=== PATIENT | male | born 1960 | race Caucasian/White ===

== ENCOUNTER 2022-05-07 14:01 | Inpatient (IN) | payer OTHER ==
[~2022-05-07] VITALS: Ht 134.6 cm; Wt 41.7 kg
--- NOTE | 2022-05-07 14:01 | NUR ---
[facility] TO ER BED 2
--- NOTE | 2022-05-07 14:15 | NUR ---
PT BROUGHT IN BY EMS DUE TO RESPIRATORY DISTRESS. ORDER FOR VENT. SETTING ACVC TV400, F18, +5, 100%FIO2. VENT PLUGGED INTO RED OUTLET,WHEELS LOCKED, AMBUBAG AT BEDSIDE, ALARMS ARE SET AND AUDIBLE. BREATH SOUNDS ARE COARSE, SUCTIONED THICK YELLOW SECRETIONS AND PT SPITS REGULARLY.
[2022-05-07 14:23] VITALS: BP 120/76
[2022-05-07] MEDS ORDERED: PIPERACILLIN/TAZOBACTAM 3.375 GM in DEXT 5% MINI-BAG PLUS 50 ML IV ONE (14:25)
[2022-05-07] MEDS ORDERED: NACL 0.9% 1,000 ML IV ONE (14:25)
[2022-05-07] MEDS ORDERED: cefTRIAXone 2,000 MG in DEXTROSE 5% 100 ML IV ONE (14:50)
[2022-05-07] MEDS ORDERED: cefTRIAXone 2,000 MG VIAL ONE (15:04)
[2022-05-07 15:18] LABS: BASOPHILS % (AUTO) 0.2 % (0.0-2.0); EOSINOPHILS # (AUTO) 0.2 K/uL (0-0.4); EOSINOPHILS % (AUTO) 1.2 % (0.0-4.0); HEMATOCRIT 26.9 % (36-52); HEMOGLOBIN 8.7 g/dL (12.0-18.0); LYMPHOCYTES # (AUTO) 0.4 K/uL (2.0-11.5); LYMPHOCYTES % (AUTO) 3.5 % (20.5-51.1); MEAN CORPUSCULAR HEMOGLOBIN 28 pg (27-31); MEAN CORPUSCULAR HGB CONC 32 g/dL (33-37); MEAN CORPUSCULAR VOLUME 86.4 fL (80-94); MONOCYTES # (AUTO) 0.7 K/uL (0.8-1.0); MONOCYTES % (AUTO) 5.6 % (1.7-9.3); NEUTROPHILS # (AUTO) 11.2 K/uL (1.8-7.7); NEUTROPHILS % (AUTO) 89.5 % (42.2-75.2); PLATELET COUNT (AUTO) 326 K/uL (140-450); RED BLOOD CELL COUNT(AUTO) 3.12 MIL/uL (4.20-6.10); RED CELL DISTRIBUTION WIDTH 15.3 % (11.6-13.7); WHITE BLOOD COUNT (AUTO) 12.6 K/uL (4.8-10.8)
[2022-05-07 15:32] LABS: ANION GAP 14.4 (8-16); CARBON DIOXIDE 31.3 mmol/L (21-32); CREATININE 1.2 mg/dL (0.6-1.3); POTASSIUM 5.7 mmol/L (3.5-5.1); TOTAL BILIRUBIN 0.4 mg/dL (0.0-1.0)
[2022-05-07 15:55] VITALS: BP 101/34
[2022-05-07 17:21] LABS: APPEARANCE,URINE CLOUDY (CLEAR)
[2022-05-07 17:22] LABS: COLOR,URINE YELLOW (YELLOW)
[2022-05-07 17:23] LABS: PH,URINE 7.5 (5.0-9.0)
[2022-05-07 17:25] LABS: BLOOD, URINE 2+ (NEGATIVE); UGLUCOSE NEGATIVE (NEGATIVE)
[2022-05-07 17:26] LABS: BILIRUBIN,URINE NEGATIVE (NEGATIVE)
[2022-05-07 17:27] LABS: LEUKOCYTE ESTERASE ,URINE 3+ (NEGATIVE); NITRITE, URINE NEGATIVE (NEGATIVE)
[2022-05-07] MEDS ORDERED: guaiFENesin DM 200/20 MG-10 ML 10 ML UDC PO PRN (17:35)
[2022-05-07] MEDS ORDERED: DOCUSATE SODIUM 100 MG GELCAP PO PRN (17:35)
[2022-05-07] MEDS: NACL 0.9% 1,000 ML IV SCH (17:35)
[2022-05-07] MEDS ORDERED: ZOLPIDEM 5 MG TAB PO PRN (17:35)
[2022-05-07] MEDS ORDERED: HYDROcodone/APAP 7.5/325 MG 1 TAB PO PRN (17:35)
[2022-05-07] MEDS ORDERED: ONDANSETRON 4 MG/2 ML VIAL IM/IVP PRN (17:35)
[2022-05-07] MEDS ORDERED: POTASSIUM CHLORIDE 10 MEQ TABER PO PRN (17:35)
[2022-05-07] MEDS ORDERED: ALBUTEROL SULFATE/IPRATROPIU 3 ML SOL IH PRN (17:40)
[2022-05-07] MEDS ORDERED: NACL 0.9% 2,000 ML IV ONE (17:45)
[2022-05-07] MEDS: levETIRAcetam 500 MG TAB PO SCH ×2 (17:45→21:03)
[2022-05-07 17:52] LABS: RBC,URINE 50-80 /HPF (0-5); WBC,URINE TOO MANY TO COUNT /HPF (0-5)
[2022-05-07 17:53] LABS: PROTHROMBIN TIME 10.1 secs (10.8-13.4)
[2022-05-07 17:53] LABS: TRICHOMONAS,URINE None Seen /HPF (None Seen); YEAST,URINE None Seen /HPF (None Seen)
[2022-05-07] MEDS ORDERED: LEVOFLOXACIN 500 MG/D5W PREMIX 150 ML IV SCH (17:58)
[2022-05-07 18:05] LABS: CHOL/HDL RATIO 1.9 (1-4.5); FREE T4 (FREE THYROXINE) 0.97 ng/dL (0.76-1.46); MAGNESIUM 2.2 mg/dL (1.8-2.4); PHOSPHORUS 3.2 mg/dL (2.5-4.9); THYROID STIMULATING HORMONE 0.53 uIU/mL (0.34-3.74)
[2022-05-07] MEDS: ALBUTEROL SULFATE/IPRATROPIU 3 ML SOL IH SCH (19:00)
--- NOTE | 2022-05-07 19:30 | NUR ---
Patient in bed, resting comfortably with NS infusing at 60 mL/hr via 20 G IV in left AC. Patient on mechanical vent via trach, chest rise and fall symmetrical, patient on monitor, VSS.
--- NOTE | 2022-05-07 19:45 | NUR ---
Note margarettewillem in EDM - 05/07/22 at 2211 by [id number] Patient will be admitted to care of Liane ROBLES. Admited to Telemetry. Will go to room 108B. Belongings list completed. Bedside report given to Liane ROBLES. Liane ROBLES verbalized understanding of report, no further questions. Patient left in care of Liane ROBLES, patient on mechanical vent, resting in bed, no s/s of distress, 20 G IV in left AC intact, IV flushed and patent.
[2022-05-07 20:23] VITALS: BP 73/37
[2022-05-07] MEDS ORDERED: CRUSHER, PILL MC ONE (21:06)
[2022-05-07 21:35] VITALS: BP 101/50
--- NOTE | 2022-05-07 21:44 | NUR ---
PT TRANSPORTED FROM ED1 TO TELE 108 W/ NO ADVERSE EVENTS PT TOLERATED TRANSPORT WELL VENT PLUGGED INTO RED OUTLET W/ ALARMS ON AND AUDIBLE AMBU WAS PLACED AT BEDSIDE WILL CONTINUE TO MONITOR
--- NOTE | 2022-05-07 21:45 | NUR ---
Patient will be admitted to care of Liane ROBLES. Admited to Telemetry. Will go to room 108B. Belongings list completed. Bedside report given to Liane ROBLES. Liane ROBLES verbalized understanding of report, no further questions. Patient left in care of Liane ROBLES, patient on mechanical vent, resting in bed, no s/s of distress, 20 G IV in left AC intact, IV flushed and patent.
--- NOTE | 2022-05-07 22:23 | NUR ---
GET THE REPORT FROM ER NURSE , PATIENT IS APHASIC, PATIENT IS ON TRACH TO KOLE WITH SETTING ON MODE:AC/AV, FIO2: 40%,RATE:18,PEEP:5, VITAL SIGN IS WITHIN THE NORMAL RANGE, PATIENT HAS G-TUBE, PATIENT HAS ALSO KAT CATHETER,ALL FALL AN SEIZURE PRECAUTION MEASURE ARE IN PLACE, ALL SCHEDULE MEDICATION IS GIVEN PER DOCTOR ORDER, CALL LIGHT IS WITHIN THE REACH, WILL CONTINUE TO MONITOR PATIENT.
[2022-05-07] MEDS ORDERED: MAGN400S60 GT (23:07)
[2022-05-07] MEDS ORDERED: PANT40EC GT (23:07)
[2022-05-07] MEDS ORDERED: ATIVAN IM (23:07)
[2022-05-07] MEDS ORDERED: ALBU0.0912 INH (23:07)
[2022-05-07] MEDS ORDERED: ASCO500T95 GT (23:07)
[2022-05-07] MEDS ORDERED: BISA-218 RC (23:07)
[2022-05-07] MEDS ORDERED: LEVE750T3 GT (23:07)
[2022-05-07] MEDS ORDERED: FERR325E14 GT (23:07)
[2022-05-07] MEDS ORDERED: ONDA-188 GT (23:07)
[2022-05-07] MEDS ORDERED: LACT10SO86 GT (23:07)
[2022-05-07] MEDS ORDERED: NA P133E RC (23:07)
[2022-05-07] MEDS ORDERED: CALC1TAB72 GT (23:07)
[2022-05-07] MEDS ORDERED: ACET-2619 GT (23:07)
[2022-05-07] MEDS ORDERED: MEDI30SO GT (23:07)
[2022-05-07] MEDS ORDERED: ROB1 GT (23:07)
[2022-05-07] MEDS ORDERED: LACO10SO12 GT (23:07)
[2022-05-08] VITALS (8 sets, daily range): BP systolic 95–177; BP diastolic 50–102
--- NOTE | 2022-05-08 00:45 | NUR ---
PATIENT IS LYING IN BED, VITAL SIGN IS WITHIN THE NORMAL RANGE, NO ANY COMPLAIN OF PAIN OR SHORTNESS OF BREATH AT THIS TIME, CHALKED PATIENT BLOOD SUGAR IS 104, NO ACTION NEEDED AT THIS TIME, CALL LIGHT IS WITHIN THE REACH, WILL CONTINUE TO MONITOR PATIENT.
[2022-05-08 03:05] LABS: BARBITURATE, URINE NEGATIVE ng/ml (NEG <=200); BENZODIAZEPINE, URINE NEGATIVE ng/mL (NEG <=200); CANNABINOID, URINE NEGATIVE ng/mL (NEG <=50); COCAINE, URINE NEGATIVE ng/mL (NEG <=300); OPIATE, URINE NEGATIVE ng/mL (NEG <=2000); PHENCYCLIDINE SCREEN,URINE NEGATIVE ng/mL (NEG <=25)
--- NOTE | 2022-05-08 04:19 | NUR ---
VITAL SIGN IS WITHIN THE NORMAL RANGE, PATIENT IS LYING ON BED, REPOSITION PATIENT AND CLEANED WITH HELP OF CHARGE NURSE, NO ANY COMPLAIN OF PAIN OR SHORTNESS OF BREATH AT THIS TIME, CALL LIGHT IS WITHIN THE REACH, WILL CONTINUE TO MONITOR PATIENT.
[2022-05-08 07:00] LABS: ANION GAP 11.9 (8-16); POTASSIUM 3.9 mmol/L (3.5-5.1)
--- NOTE | 2022-05-08 07:21 | NUR ---
GAVE THE REPORT TO MORNING NURSE MARY FOR CONTINUOS OF CARE, PATIENT IS STABLE.
[2022-05-08 07:41] LABS: EOSINOPHILS # (AUTO) 0.1 K/uL (0-0.4); EOSINOPHILS % (AUTO) 0.6 % (0.0-4.0); MONOCYTES # (AUTO) 0.7 K/uL (0.8-1.0); PLATELET COUNT (AUTO) 221 K/uL (140-450)
[2022-05-08 07:46] LABS: BASOPHILS % (AUTO) 0.2 % (0.0-2.0); HEMATOCRIT 21.4 % (36-52); LYMPHOCYTES # (AUTO) 0.5 K/uL (2.0-11.5); LYMPHOCYTES % (AUTO) 3.6 % (20.5-51.1); MEAN CORPUSCULAR HEMOGLOBIN 28 pg (27-31); MEAN CORPUSCULAR HGB CONC 32 g/dL (33-37); MEAN CORPUSCULAR VOLUME 87.1 fL (80-94); NEUTROPHILS # (AUTO) 12.7 K/uL (1.8-7.7); NEUTROPHILS % (AUTO) 90.6 % (42.2-75.2); RED BLOOD CELL COUNT(AUTO) 2.46 MIL/uL (4.20-6.10); RED CELL DISTRIBUTION WIDTH 15.6 % (11.6-13.7)
[2022-05-08 07:49] LABS: HEMOGLOBIN 6.9 g/dL (12.0-18.0)
[2022-05-08] MEDS: ALBUTEROL SULFATE/IPRATROPIU 3 ML SOL IH SCH ×3 (07:49→20:40)
--- NOTE | 2022-05-08 08:41 | NUR ---
RECEIVE ENDORSEMENT FROM PM SHIFT NURSE THAT PATIENT RE IN BED; PATIENT IS APHAGIA WITH TRACH TO VENT, TUBE FEEDING GLUCERNA 1.2 @40ML/HR, WATER FLUSH 100; PIV NS@60ML/HR INFUSING AT LAC. WILL CONTINUE TO MONITOR
--- NOTE | 2022-05-08 09:30 | NUR ---
PATIENT HAS BEEN SCREENED AND CATEGORIZED HIGH NUTRITION RISK. PATIENT WILL BE SEEN WITHIN 1-2 DAYS OF ADMISSION. 05/08/22-05/10/[address]
[2022-05-08] MEDS: LEVOFLOXACIN 250 MG/D5 PREMIX 50 ML IV SCH (09:55)
[2022-05-08] MEDS: PANTOPRAZOLE 40 MG TABEC PO SCH (09:58)
[2022-05-08] MEDS: levETIRAcetam 500 MG TAB PO SCH ×2 (09:58→21:16)
[2022-05-08] MEDS: NACL 0.9% 1,000 ML IV SCH (09:59)
[2022-05-08 11:28] LABS: BASOPHILS % (AUTO) 0.3 % (0.0-2.0); EOSINOPHILS % (AUTO) 0.2 % (0.0-4.0); HEMATOCRIT 21.8 % (36-52); LYMPHOCYTES # (AUTO) 0.7 K/uL (2.0-11.5); MEAN CORPUSCULAR HEMOGLOBIN 28 pg (27-31); MEAN CORPUSCULAR HGB CONC 32 g/dL (33-37); MEAN CORPUSCULAR VOLUME 88.3 fL (80-94); MONOCYTES # (AUTO) 0.8 K/uL (0.8-1.0); NEUTROPHILS % (AUTO) 90.5 % (42.2-75.2); PLATELET COUNT (AUTO) 281 K/uL (140-450); RED BLOOD CELL COUNT(AUTO) 2.46 MIL/uL (4.20-6.10); RED CELL DISTRIBUTION WIDTH 15.8 % (11.6-13.7); WHITE BLOOD COUNT (AUTO) 16.5 K/uL (4.8-10.8)
[2022-05-08 11:31] LABS: HEMOGLOBIN 6.9 g/dL (12.0-18.0)
--- NOTE | 2022-05-08 19:30 | NUR ---
RECEIVED REPORT FROM DAY SHIFT NURSE FOR CONTINUITY OF CARE. PT IS AWAKE, ALERT AND RESPONSIVE ON BED, NOTED SHAKY. SALINE LOCK ON LEFT AC INTACT AND PATENT. SALINE LOCK ON RIGHT FOREARM INTACT. PT IS WITH KAT CATHETER, INTACT AND PATENT. PT IS WITH GTUBE FEEDING GLUCERNA 1.2 AT 40 ML/HR WITH WELL TOLERATED. SKIN INTACT. CONTINUE MONITORING.
[2022-05-08] MEDS: LORazepam 2 MG/ML VIAL IVP PRN (19:34)
[2022-05-08] MEDS ORDERED: diphenhydrAMINE 50 MG/ML VIAL IVP SCH (19:40)
[2022-05-08] MEDS: METOPROLOL 25 MG TAB PO SCH (21:18)
[2022-05-08 23:49] LABS: HEMATOCRIT 20.7 % (36-52)
[2022-05-09] VITALS (8 sets, daily range): BP systolic 112–139; BP diastolic 46–69
--- NOTE | 2022-05-09 00:24 | NUR ---
REPORTED TO DR. RIGGINS HGB RESULT = 7.0. DR. RIGGINS ORDER TO TRANSFUSE 1 MORE UNIT OF PRBCs. ORDER CARRIED OUT.
--- NOTE | 2022-05-09 02:27 | NUR ---
VITAL SIGNS CHECK PRIOR BLOOD TRANSFUSION. PT AWAKE AND ALERT. NO SOB OR DISTRESS. V/S: B/P108/45, P87, T98.5, R20, PAIN 0/10, O2 SAT 97%.
--- NOTE | 2022-05-09 02:42 | NUR ---
STARTS BLOOD TRANSFUSION OF 1 PACK RBC. PT IS SLEEPING. NO SOB OR DISTRESS. IV SALINE LOCK ON LEFT AC INTACT AND PATENT. B/P115/55, P82, R20, T98.7, O/10 PAIN.
[2022-05-09] MEDS: NACL 0.9% 1,000 ML IV SCH ×2 (02:55→19:35)
--- NOTE | 2022-05-09 02:57 | NUR ---
PT IS SLEEPING, WELL TOLERATED WITH BLOOD TRANSFUSION. NO ALLERGY OR SIDE REACTION. NO FACIAL GRIMACING.
--- NOTE | 2022-05-09 03:57 | NUR ---
BLOOD TRANSFUSION IS ON GOING. WELL TOLERATED. NO ALLERGY OR SIDE REACTION. B/P128/55, P80, R20, T98.3, PAIN 0/10. WELL TOLERATED, NO ALLERGY OR SIDE REACTION.
--- NOTE | 2022-05-09 04:57 | NUR ---
BLOOD TRANSFUSION ON GOING, NO ALLERGY OR SIDE REACTION.
--- NOTE | 2022-05-09 05:15 | NUR ---
BLOOD TRANSFUSION COMPLETED. WELL TOLERATED, NO ALLERGY OR SIDE REACTION.
--- NOTE | 2022-05-09 05:57 | NUR ---
V/S CHECKED: B/P123/65, P74, R21, T97.8, PAIN 0/10. PT AWAKE AND RESPONSIVE.
--- NOTE | 2022-05-09 07:10 | NUR ---
PT IS AWAKE, ALERT AND RESPONSIVE, IS ON STABLE CONDITION. ENDORSE TO DAY SHIFT NURSE FOR CONTINUITY OF CARE. ALL SAFETY MEASURES ARE IN PLACE.
[2022-05-09] MEDS: ALBUTEROL SULFATE/IPRATROPIU 3 ML SOL IH SCH ×3 (08:24→19:19)
[2022-05-09 08:27] LABS: BASOPHILS % (AUTO) 0.3 % (0.0-2.0); EOSINOPHILS # (AUTO) 0.1 K/uL (0-0.4); EOSINOPHILS % (AUTO) 1.4 % (0.0-4.0); HEMATOCRIT 27.9 % (36-52); HEMOGLOBIN 9.2 g/dL (12.0-18.0); LYMPHOCYTES # (AUTO) 0.5 K/uL (2.0-11.5); LYMPHOCYTES % (AUTO) 4.4 % (20.5-51.1); MEAN CORPUSCULAR HEMOGLOBIN 28 pg (27-31); MEAN CORPUSCULAR HGB CONC 33 g/dL (33-37); MEAN CORPUSCULAR VOLUME 85.3 fL (80-94); MONOCYTES # (AUTO) 0.6 K/uL (0.8-1.0); MONOCYTES % (AUTO) 5.5 % (1.7-9.3); NEUTROPHILS # (AUTO) 9.2 K/uL (1.8-7.7); NEUTROPHILS % (AUTO) 88.4 % (42.2-75.2); PLATELET COUNT (AUTO) 202 K/uL (140-450); RED BLOOD CELL COUNT(AUTO) 3.27 MIL/uL (4.20-6.10); RED CELL DISTRIBUTION WIDTH 16.1 % (11.6-13.7); WHITE BLOOD COUNT (AUTO) 10.4 K/uL (4.8-10.8)
[2022-05-09 08:42] LABS: ANION GAP 14.4 (8-16); CARBON DIOXIDE 23.5 mmol/L (21-32); CREATININE 0.8 mg/dL (0.6-1.3); POTASSIUM 3.9 mmol/L (3.5-5.1)
--- NOTE | 2022-05-09 08:44 | NUR ---
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 WILL CONTINUE TO MONITOR
[2022-05-09 09:06] LABS: T4 (THYROXINE) 7.4 ug/dL (4.5-12.0)
[2022-05-09] MEDS: LEVOFLOXACIN 250 MG/D5 PREMIX 50 ML IV SCH (09:54)
[2022-05-09] MEDS: PANTOPRAZOLE 40 MG TABEC PO SCH (09:55)
[2022-05-09] MEDS: MUPIROCIN CA NASAL 2% 1GM TUBE NS SCH (09:55)
[2022-05-09] MEDS: METOPROLOL 25 MG TAB PO SCH ×2 (09:57→20:49)
[2022-05-09] MEDS: levETIRAcetam 500 MG TAB PO SCH (09:58)
[2022-05-09] MEDS: CHLORHEXADINE GLUC 2% CLOTH TP SCH (09:58)
--- NOTE | 2022-05-09 15:48 | NUR ---
05/09/2022 RD INITIAL ASSESSMENT COMPLETED. PLEASE REFER TO NUTRITION ASSESSMENT UNDER CARE ACTIVITY FOR ESTIMATED NUTRITIONAL NEEDS. 1.CONTINUE GLUCERNA 1.2 @ 40ML/HR; FWF 100ML Q4H PT TOLERATES. 2.MONITOR GASTRIC RESIDUAL 3.RD TO FOLLOW-UP IN 3-5 DAYS PATIENT IS MODERATE RISK. RASHID URIBE RD
--- NOTE | 2022-05-09 19:30 | NUR ---
REPORT RECEIVED FROM DAY SHIFT RN. PATIENT AWAKE, NON VERBAL. PT IS CONTRACTED. VITAL SIGNS TAKEN AND STABLE. PT TRACHED ON VENTILATOR, WITH A KAT DRAINING CLEAR YELLOW URINE. IV TO LEFT AC AND IV TO RIGHT FOREARM. CARE TAKEN OVER. WILL CONTINUE TO MONITOR.
--- NOTE | 2022-05-09 19:44 | NUR ---
ENDORSE PATIENT TO PM SHIFT NURSE WHILE PATIENT REST IN BED, APHAGIA, ON TRACH TO VENT, TUBE FEEDING GLUCERNA 1.2 @40ML/HR, WATER FLUSH 100ML Q 4 HOURS; PIV NS@60ML/HR INFUSING VIA LAC, R.FOREARM SALINE LOOK; CONTACT ISOLATION FOR MRSA POSITIVE AT NARES
[2022-05-09] MEDS: VALPROIC ACID 250 MG/5 ML UDC PO SCH (20:48)
[2022-05-09] MEDS: levETIRAcetam 100 MG/ML ORASYR PEG SCH (20:48)
--- NOTE | 2022-05-09 20:48 | NUR ---
SCHEDULED MEDICATIONS ADMINISTERED ORDERED.
--- NOTE | 2022-05-09 23:00 | NUR ---
PT RESTING WITH EYES OPEN. NO S/S OF ANY DISTRESS. WILL CONTINUE TO MONITOR
[2022-05-10] VITALS (7 sets, daily range): BP systolic 115–146; BP diastolic 52–65
--- NOTE | 2022-05-10 03:01 | NUR ---
PATIENT SLEEPING. HAD SOFT BOWEL MOVEMENT. CLEANED LUX AREA AND CHANGED LINEN. NO S/S OF DISTRESS. WILL CONTINUE TO MONITOR.
[2022-05-10] MEDS ORDERED: DEXTROSE 50% 50 ML SYR IVP PRN (03:30)
[2022-05-10] MEDS ORDERED: INSULIN LISPRO SLIDING SCALE 100 UNITS/ML VIAL SUBQ PRN (03:30)
--- NOTE | 2022-05-10 04:00 | NUR ---
PT AWAKE IN BED, NON VERBAL. VITALS TAKEN, STABLE. WILL CONTINUE TO MONITOR.
--- NOTE | 2022-05-10 04:20 | NUR ---
SUCTIONED SECRETIONS TOLERATED WELL. NO DISTRESS.
[2022-05-10] MEDS: BLOOD GLUCOSE MONITORING 1 DEV DEV FS SCH ×4 (06:32→20:55)
--- NOTE | 2022-05-10 06:32 | NUR ---
BLOOD SUGAR CHECKED WAS 104 NO INSULIN NEEDED.
[2022-05-10 06:39] LABS: ANION GAP 19.7 (8-16); CARBON DIOXIDE 20.9 mmol/L (21-32); POTASSIUM 3.6 mmol/L (3.5-5.1)
[2022-05-10 06:49] LABS: BASOPHILS # (AUTO) 0.1 K/uL (0.00-0.22); BASOPHILS % (AUTO) 0.6 % (0.0-2.0); EOSINOPHILS # (AUTO) 0.6 K/uL (0-0.4); EOSINOPHILS % (AUTO) 3.2 % (0.0-4.0); HEMOGLOBIN 10.5 g/dL (12.0-18.0); LYMPHOCYTES % (AUTO) 11.2 % (20.5-51.1); MEAN CORPUSCULAR HEMOGLOBIN 28 pg (27-31); MEAN CORPUSCULAR HGB CONC 32 g/dL (33-37); MEAN CORPUSCULAR VOLUME 86.6 fL (80-94); MONOCYTES % (AUTO) 5.5 % (1.7-9.3); NEUTROPHILS # (AUTO) 14.2 K/uL (1.8-7.7); NEUTROPHILS % (AUTO) 79.5 % (42.2-75.2); PLATELET COUNT (AUTO) 325 K/uL (140-450); RED BLOOD CELL COUNT(AUTO) 3.81 MIL/uL (4.20-6.10); RED CELL DISTRIBUTION WIDTH 15.9 % (11.6-13.7); WHITE BLOOD COUNT (AUTO) 17.9 K/uL (4.8-10.8)
--- NOTE | 2022-05-10 07:13 | NUR ---
REPORT GIVEN TO DAY SHIFT RN MARILYNN. CARE GIVEN OVER.
[2022-05-10] MEDS: ALBUTEROL SULFATE/IPRATROPIU 3 ML SOL IH SCH ×3 (07:40→20:22)
[2022-05-10] MEDS: PANTOPRAZOLE 40 MG TABEC PO SCH (08:52)
[2022-05-10] MEDS: METOPROLOL 25 MG TAB PO SCH ×2 (08:55→20:45)
[2022-05-10] MEDS: levETIRAcetam 100 MG/ML ORASYR PEG SCH ×2 (08:55→20:45)
[2022-05-10] MEDS: LEVOFLOXACIN 250 MG/D5 PREMIX 50 ML IV SCH (08:56)
[2022-05-10] MEDS: VALPROIC ACID 250 MG/5 ML UDC PO SCH ×2 (08:56→20:45)
[2022-05-10] MEDS: CHLORHEXADINE GLUC 2% CLOTH TP SCH (09:15)
[2022-05-10] MEDS: MUPIROCIN CA NASAL 2% 1GM TUBE NS SCH (09:24)
--- NOTE | 2022-05-10 13:56 | NUR ---
DC PLANNING PATIENT TRAYC/VENT AND IS MINIMALLY VERBAL, THEREFORE SW OUTREACHED TO [facility] TO GATHER COLLATERAL INFORMATION. SPOKE WITH FACILITY TORIN SUAZO WHO REPORTS PATIENT HAS BEEN IN LONG TERM CARE SINCE 10/29/20. PATIENT HAS A SISTER, RAMANA HERMOSILLO [phone] WHO IS ACTIVE IN HIS CARE AND VISITS WITH HIM FREQUENTLY.PATIENT IS REPORTED TO BE CONSERVED, PUBLIC GUARDIAN IS ALY BARBOZABHCOIGUTCTL-[phone] AND IS ALSO [facility] CONNECT[facility]. [facility] [phone]. PATIENT IS TOTAL CARE/ FULL ASSIST AT THE FACILITY AND UTILIZES A WC. SW REPORTS PATIENT IS MINIMALLY VERBAL AND AT BASELINE IS A&Ox1/2. DC PLAN IS FOR PATIENT TO RETURN TO [facility] WHEN MEDICALLY STABLE.
[2022-05-10] MEDS: NACL 0.9% 1,000 ML IV SCH (13:58)
--- NOTE | 2022-05-10 13:58 | NUR ---
PT. WITH LOW KLAUS SCALE AT MODERATE TO HIGH RISK, CONTINUE TO FOLLOW PRESSURE INJURY PREVENTION INTERVENTIONS. -POSITIONING: TURN AND REPOSITION PATIENT Q 2H OR SOONER USE PILLOWS TO KEEP BONY PROMINENCES FROM DIRECT CONTACT WITH SURFACES USE REPOSITIONING WEDGES TO PROVIDE 30-DEGREE ANGLE FOR SIDE LYING POSITIONS OFFLOADING OR FOAM DRESSING TO ALL TUBING TO PREVENT MEDICAL DEVICES RELATED PRESSURE INJURY -RE-EVALUATING AND MANAGING INCONTINENCE MONITOR SKIN CONDITION DURING POSITION CHANGE DO NOT MASSAGE REDNESS, BONY PROMINENCES FREQUENT LUX-CARE AND PROVIDE BARRIER CREAMS PRN IF SOILING MOISTURE CONTROL BY OFFER BED FRANKS/URINAL /ABSORBENT PAD TO WICK AND HOLD MOISTURE KEEP SKIN DRY AND PROTECT FROM FRICTION -MANAGE FRICTION/SHEAR/MOBILITY KEEP HOB AT THE LOWEST LEVEL OF ELEVATION NO MORE THAN 30 DEGREE UNLESS OTHERWISE CONTRAINDICATED USE LIFT SHEET OR TRANSFER DEVICE TO MOVE PATIENT AND PREVENT LATERAL SHEER. PROTECT HEELS, ELBOWS BONY PROMINENCES WITH SKIN BERRIES OR FOAM DRESSING IF EXPOSED TO FRICTION OFFLOAD BILATERAL HEELS BY PLACING PILLOWS UNDER CALVES AT ALL TIMES, UNLESS OTHERWISE CONTRAINDICATED -PRESSURE REDISTRIBUTION SURFACE THERAPY KEN ISOFLEX MATTRESS -NUTRITION: PLEASE FOLLOW RD RECOMMENDATIONS AND OFFER NUTRITION SUPPLEMENTS IF ORDERED. PLEASE CONTACT WOUND CARE NURSE FOR ANY QUESTION AND CHANGE OF WOUND CONDITION.
[2022-05-10] MEDS: ACETAMINOPHEN 325 MG TAB PO PRN (17:05)
--- NOTE | 2022-05-10 19:35 | NUR ---
RECEIVED REPORT FROM MORNING SHIFT. PATIENT SLEEPING WITH TRACH TO VENT. BREATHING EVEN UNLABORED. NO DISTRESS. SKIN WARM AND DRY TO THE TOUCH. IV ACCESS ON THE LAC INFUSING NS AT 60. G-TUBE FEEDING RUNNING 40 MLS/HR TOLERATING WELL. CALL LIGHT WITHIN REACH. WILL CONTINUE TO MONITOR. ALL SAFETY PRECAUTIONS ARE IN PLACE.
--- NOTE | 2022-05-10 20:55 | NUR ---
ALL 2100 SCHEDULED MEDICATIONS ADMINISTERED PER MD ORDER.
--- NOTE | 2022-05-10 20:56 | NUR ---
BLOOD SUGAR CHECKED WAS 139 NO INSULIN COVERAGE NEEDED.
--- NOTE | 2022-05-10 23:50 | NUR ---
PATIENT IS AWAKE. CLEANED , CHANGED AND REPOSITIONED.
[2022-05-11] VITALS: BP 147/72
--- NOTE | 2022-05-11 | NUR ---
ZYVOX ADMINISTERED PER MD ORDER.
[2022-05-11 04:00] VITALS: BP 117/52
[2022-05-11] MEDS: NACL 0.9% 1,000 ML IV SCH ×2 (04:55→21:52)
[2022-05-11] MEDS ORDERED: MEROPENEM 1,000 MG in NACL 0.9% 50 ML IV SCH (05:00)
[2022-05-11 06:42] LABS: ANION GAP 16.1 (8-16); CARBON DIOXIDE 21.2 mmol/L (21-32); CREATININE 0.8 mg/dL (0.6-1.3); POTASSIUM 3.3 mmol/L (3.5-5.1)
[2022-05-11] MEDS: BLOOD GLUCOSE MONITORING 1 DEV DEV FS SCH ×4 (06:42→21:00)
--- NOTE | 2022-05-11 06:42 | NUR ---
BLOOD SUGAR WAS 109 NO INSULIN COVERAGE NEEDED.
[2022-05-11 06:43] LABS: BASOPHILS % (AUTO) 0.2 % (0.0-2.0); EOSINOPHILS # (AUTO) 0.1 K/uL (0-0.4); EOSINOPHILS % (AUTO) 0.6 % (0.0-4.0); HEMATOCRIT 27.1 % (36-52); LYMPHOCYTES # (AUTO) 0.4 K/uL (2.0-11.5); LYMPHOCYTES % (AUTO) 4.3 % (20.5-51.1); MEAN CORPUSCULAR HEMOGLOBIN 28 pg (27-31); MEAN CORPUSCULAR HGB CONC 33 g/dL (33-37); MEAN CORPUSCULAR VOLUME 85.3 fL (80-94); MONOCYTES # (AUTO) 0.6 K/uL (0.8-1.0); MONOCYTES % (AUTO) 6.5 % (1.7-9.3); NEUTROPHILS # (AUTO) 8.8 K/uL (1.8-7.7); NEUTROPHILS % (AUTO) 88.4 % (42.2-75.2); PLATELET COUNT (AUTO) 202 K/uL (140-450); RED BLOOD CELL COUNT(AUTO) 3.18 MIL/uL (4.20-6.10); RED CELL DISTRIBUTION WIDTH 15.9 % (11.6-13.7); WHITE BLOOD COUNT (AUTO) 9.9 K/uL (4.8-10.8)
[2022-05-11] MEDS: ALBUTEROL SULFATE/IPRATROPIU 3 ML SOL IH SCH ×2 (07:01→19:55)
--- NOTE | 2022-05-11 07:15 | NUR ---
[facility]UITY OF CARE. PT IS ON A TRACH TO VENT CURRENTLY SATING AT 95%. PT IS ON TELEMETRY MONITORING. PT HAS A 20G IV ON THE LEFT FOREARM WHICH IS PATENT AND INTACT. PT HAS A G-TUBE WITH FEEDINGS RUNNING 40ML/HR. PT HAS A KAT CATHETER. PT IS STILL ON CONTACT ISOLATION FOR MRSA OF THE NARES. PT HAS ESBL IN THE URINE. PT IS NONVERBAL, BUT CAN POINT TO WHERE PAIN IS PRESENT UPON BEING ASKED. PT IS CLOSEST TO THE NURSES STATION FOR CONTINUOUS OBSERVATION. PT IS IN LOWEST POSITION IN BED, AND SAFETY MEASURES ARE IN PLACE.
--- NOTE | 2022-05-11 07:20 | NUR ---
ENDORSED PATIENT TO DAY SHIFT NURSE FOR CONTINUITY OF CARE.
[2022-05-11 08:00] VITALS: BP 135/52
[2022-05-11] MEDS: levETIRAcetam 100 MG/ML ORASYR PEG SCH ×2 (08:47→21:00)
[2022-05-11] MEDS: VALPROIC ACID 250 MG/5 ML UDC PO SCH ×2 (08:47→21:52)
[2022-05-11] MEDS: METOPROLOL 25 MG TAB PO SCH ×2 (08:48→21:00)
[2022-05-11] MEDS: CHLORHEXADINE GLUC 2% CLOTH TP SCH (09:15)
[2022-05-11] MEDS: MUPIROCIN CA NASAL 2% 1GM TUBE NS SCH (09:15)
--- NOTE | 2022-05-11 09:50 | NUR ---
PT VISIBLY ANXIOUS WITH LABORED BREATHING AND SPITTING SALIVA, SPO2 91%. PERFORMED ORAL CARE AND SUCTION WITH HYPEROXYGENATION. BLOOD TINGED SECRETIONS NOTED. PT FLAILED ARM AND REMOVED VENT, VENT REATTACHED. PAGED RT TO BEDSIDE TO ASSESS. PT SPO2 INCREASED TO 94%.
[2022-05-11] MEDS ORDERED: POTASSIUM CHLORIDE 20% 40 MEQ/15 ML UDC GT PRN (10:45)
[2022-05-11] MEDS: PANTOPRAZOLE 40 MG INJ VIAL IVP SCH (11:00)
[2022-05-11] MEDS: MEROPENEM 1,000 MG in NACL 0.9% 50 ML IV SCH ×2 (11:00→21:52)
--- NOTE | 2022-05-11 11:50 | NUR ---
MILD EDEMA NOTED ON LEFT ARM, IV WAS NOTED OUT OF PT'S ARM, NO BLEEDING AT THE SITE. NEW IV 22G INSERTED RIGHT ANTECUBITAL. FLACC 0.
[2022-05-11 12:00] VITALS: BP 113/51
--- NOTE | 2022-05-11 12:04 | NUR ---
PT SPO2 WAS AT 84%, SUCTIONED PT AND PERFORMED ORAL CARE. PT THEN BEGAN HAVING TONIC CLONIC MOVEMENTS, SEIZURE PROTOCOL INITIATED. SEIZURE DURATION LASTED 45 SECONDS. PT WENT INTO POSTICTAL PHASE, AWAKE WITH NO TRACKING IN EYES. PT HAD MILD SECRETIONS FROM MOUTH AND TRACHE. PT WAS HYPEROXYGENATED AND SUCTIONED, AND PRN ATIVAN GIVEN. PT PROMPTLY FELL ASLEEP. SPO2 STAYED AT 98% POST HYPEROXYGENATION, WITH NO TONIC CLONIC MOVEMENTS NOTED, AFTER 2 MINUTES.
[2022-05-11] MEDS: LORazepam 2 MG/ML VIAL IVP PRN (12:05)
[2022-05-11] MEDS: LINEZOLID 600MG PREMIX 300 ML IV SCH ×2 (13:11)
--- NOTE | 2022-05-11 14:00 | NUR ---
PT CURRENTLY SLEEPING, NO SIGNS OF PAIN OR DISTRESS NOTED.
[2022-05-11 16:00] VITALS: BP 114/56
--- NOTE | 2022-05-11 16:00 | NUR ---
PT CURRENTLY SLEEPING, NO SIGNS OF PAIN OR DISTRESS NOTED.
--- NOTE | 2022-05-11 18:08 | NUR ---
ASSISTED HODAN BERUMEN WITH BED BATH AND LINEN CHANGE FOR PT'S BM. WHEN TELLING THE PT WE WILL BE TURNING HIM ON HIS OTHER SIDE, PT SHOOK HIS HEAD AND MOUTHED "NO". WHEN ASKED IF HE WISHED TO STAY ON HIS SAME SIDE, PT NODDED MOUTHING "YES". TURNING REFUSAL DOCUMENTED.
--- NOTE | 2022-05-11 19:35 | NUR ---
ENDORSED PT TO NIGHTSHIFT NURSE BAMBI FOR CONTINUITY OF CARE. PT IN STABLE CONDITION.
[2022-05-11 23:29] VITALS: BP 119/63
[2022-05-12] MEDS: LINEZOLID 600MG PREMIX 300 ML IV SCH ×2 (00:30→13:45)
[2022-05-12] MEDS: LORazepam 2 MG/ML VIAL IVP PRN (02:27)
[2022-05-12] MEDS: BLOOD GLUCOSE MONITORING 1 DEV DEV FS SCH ×4 (06:48→21:36)
[2022-05-12] MEDS: ALBUTEROL SULFATE/IPRATROPIU 3 ML SOL IH SCH ×2 (06:51→12:42)
--- NOTE | 2022-05-12 07:00 | NUR ---
RECEIVED PT ON VC 400, RR18, +5, 28%. VENT IS PLUGGED IN RED OUTLET, WHEELS ARE LOCKED AND AMBUBAG AT BEDSIDE. ALRAMS ARE SET AND AUDIBLE.
[2022-05-12 07:11] LABS: BASOPHILS % (AUTO) 0.4 % (0.0-2.0); EOSINOPHILS % (AUTO) 0.4 % (0.0-4.0); HEMATOCRIT 23.7 % (36-52); LYMPHOCYTES # (AUTO) 0.4 K/uL (2.0-11.5); LYMPHOCYTES % (AUTO) 4.2 % (20.5-51.1); MEAN CORPUSCULAR HEMOGLOBIN 29 pg (27-31); MEAN CORPUSCULAR HGB CONC 34 g/dL (33-37); MEAN CORPUSCULAR VOLUME 85.3 fL (80-94); MONOCYTES # (AUTO) 0.8 K/uL (0.8-1.0); MONOCYTES % (AUTO) 8.9 % (1.7-9.3); NEUTROPHILS % (AUTO) 86.1 % (42.2-75.2); PLATELET COUNT (AUTO) 167 K/uL (140-450); RED BLOOD CELL COUNT(AUTO) 2.77 MIL/uL (4.20-6.10); RED CELL DISTRIBUTION WIDTH 15.6 % (11.6-13.7); WHITE BLOOD COUNT (AUTO) 9.3 K/uL (4.8-10.8)
[2022-05-12 07:12] VITALS: BP 115/69
--- NOTE | 2022-05-12 07:15 | NUR ---
RECEIVED BEDSIDE REPORT FROM [facility] TRAVIS LACY FOR CONTINUITY OF CARE. PT IS ON A TRACH TO VENT CURRENTLY SATING AT 96%. PT IS ON TELEMETRY MONITORING. PT HAS A 22G IV ON THE RAC WHICH IS PATENT AND INTACT. PT HAS A G-TUBE WITH FEEDINGS RUNNING 40ML/HR. PT HAS A KAT CATHETER. PT IS STILL ON CONTACT ISOLATION FOR MRSA OF THE NARES. PT HAS ESBL IN THE URINE. PT IS NONVERBAL, BUT CAN POINT TO WHERE PAIN IS PRESENT UPON BEING ASKED. PT IS CLOSEST TO THE NURSES STATION FOR CONTINUOUS OBSERVATION. PT IS IN LOWEST POSITION IN BED, AND SAFETY MEASURES ARE IN PLACE.
[2022-05-12 07:28] LABS: ANION GAP 14.1 (8-16); CARBON DIOXIDE 23.7 mmol/L (21-32); CREATININE 0.7 mg/dL (0.6-1.3); POTASSIUM 3.8 mmol/L (3.5-5.1)
[2022-05-12] MEDS: levETIRAcetam 100 MG/ML ORASYR PEG SCH ×2 (09:13→21:38)
[2022-05-12] MEDS: MUPIROCIN CA NASAL 2% 1GM TUBE NS SCH (09:14)
[2022-05-12] MEDS: PANTOPRAZOLE 40 MG INJ VIAL IVP SCH (09:14)
[2022-05-12] MEDS: METOPROLOL 25 MG TAB PO SCH ×2 (09:15→21:00)
[2022-05-12] MEDS: VALPROIC ACID 250 MG/5 ML UDC PO SCH ×2 (09:19→21:38)
[2022-05-12] MEDS: MEROPENEM 1,000 MG in NACL 0.9% 50 ML IV SCH ×2 (09:29→21:37)
[2022-05-12] MEDS: CHLORHEXADINE GLUC 2% CLOTH TP SCH (09:30)
--- NOTE | 2022-05-12 10:00 | NUR ---
DR. AYON IN TO SEE PT. PT CURRENTLY RESTING W/O S/S OF DISTRESS
[2022-05-12 12:00] VITALS: BP 118/55
--- NOTE | 2022-05-12 12:00 | NUR ---
PT SUCTIONED, SECRETIONS CONTAINED SCANT BLOOD. PT SATING AT 98% ON 32 FIO2%.
--- NOTE | 2022-05-12 14:00 | NUR ---
PT RESTING W/O S/S OF DISTRESS.
[2022-05-12] MEDS: NACL 0.9% 1,000 ML IV SCH (14:54)
[2022-05-12 16:00] VITALS: BP 115/55
--- NOTE | 2022-05-12 16:10 | NUR ---
MIDLINE DOUBLE LUMEN CATHETER INSERTED IN THE LEFT UPPER ARM [FOREARM].
--- NOTE | 2022-05-12 18:20 | NUR ---
SUCTIONED PT, SCANT BLOOD PRESENT IN SECRETIONS. SATING AT 97% ON 32 FIO2%.
--- NOTE | 2022-05-12 19:13 | NUR ---
ENDORSED PT TO NIGHTSHIFT TRAVIS PEREZ. PT IS STABLE
--- NOTE | 2022-05-12 19:15 | NUR ---
RECEIVED REPORT FROM AM NURSE BHASKAR RN FOR CONTINUITY OF CARE. PT IS STABLE IN BED. A&OX1 BUT CAN NOD YES AND NO ANSWERS. ALSO SOMETIMES MOUTHS SIMPLE WORDS. DENIES PAIN. TRACH TO VENT SETTINGS: FIO2:32%, PEEP:5, TV:400, RATE:18 MUST SUCTION TRACH AND ORALLY WITH YANKHOUER . GETTING SCANT WHITE SECRETIONS FROM TRACH AND CLEAR SPUTUM FROM MOUTH . GI PEG TUBE WITH FEEDING GLUCERNA 1.2 @40CC/HR WITH 100CC WATER Q4 HR. IV LFA MIDLINE DOUBLE LUMEN INFUSING NS @60CC/HR. KAT CATHETER DRAINING CLEAR YELLOW URINE. BOTH LOWER EXTREMITIES CONTRACTED DUE TO CEREBRAL PALSY. HEEL PROTECTORS ON. PT IS BEDBOUND AND INCONTINENT. ALL SAFETY MEASURES IN PLACE. BED IN LOW AND LOCKED POSITION CALL LIGHT WITHIN REACH. CONTINUE WITH FREQ VISUAL CHECKS.
[2022-05-12 19:33] VITALS: BP 140/55
[2022-05-12 20:00] VITALS: BP 114/49
--- NOTE | 2022-05-12 21:40 | NUR ---
HS MEDS GIVEN VIA G-TUBE AND IV. BP LOW 114/49 LOPRESSOR NOT GIVEN. WILL CONTINUE WITH FREQ VISUAL CHECKS.
[2022-05-13] VITALS (8 sets, daily range): BP systolic 117–155; BP diastolic 48–69
--- NOTE | 2022-05-13 00:26 | NUR ---
ZYVOX IVPB GIVEN ORDERED. TURNED AND REPOSITIONED WITH 3 PERSON ASSIST TOTAL CARE. NO SEIZURE ACTIVITY NOTICED. WILL CONTINUE TO MONITOR.
[2022-05-13] MEDS: LINEZOLID 600MG PREMIX 300 ML IV SCH ×2 (00:30→11:41)
[2022-05-13] MEDS: NACL 0.9% 1,000 ML IV SCH ×2 (01:30→06:55)
--- NOTE | 2022-05-13 04:00 | NUR ---
VSS T-99.4 AT 0417 TYLENOL 650MG GIVEN VIA G-TUBE. NO RESIDUAL. TURNED AND REPOSITIONED WITH 2 PERSON ASSIST. SKIN CARE DONE. INCONTINENT OF MODERATE LIQUID LOOSE BM. KAT CATH DRAINED 400CC CLEAR GREGOR URINE. WILL CONTINUE TO MONITOR.
--- NOTE | 2022-05-13 04:37 | NUR ---
MICHAEL FROM RESPIRATORY MENTIONED WHEN DOING PULMONARY CARE PT HAD VIOLENT SHAKING LASTING 15 SECONDS. HR WENT UP TO 130'S THEN CAME DOWN TO 100. NO OTHER SEIZURE LIKE ACTIVITY THIS SHIFT. WILL ENDORSE TO AM SHIFT TO FOLLOW UP.
--- NOTE | 2022-05-13 07:00 | NUR ---
DQ=[id number] NO INSULIN COVERAGE NEEDED
[2022-05-13 07:12] LABS: BASOPHILS # (AUTO) 0.1 K/uL (0.00-0.22); BASOPHILS % (AUTO) 0.8 % (0.0-2.0); EOSINOPHILS # (AUTO) 0.1 K/uL (0-0.4); EOSINOPHILS % (AUTO) 1.7 % (0.0-4.0); HEMATOCRIT 22.9 % (36-52); HEMOGLOBIN 7.8 g/dL (12.0-18.0); LYMPHOCYTES # (AUTO) 0.3 K/uL (2.0-11.5); LYMPHOCYTES % (AUTO) 4.2 % (20.5-51.1); MEAN CORPUSCULAR HEMOGLOBIN 29 pg (27-31); MEAN CORPUSCULAR HGB CONC 34 g/dL (33-37); MEAN CORPUSCULAR VOLUME 85.2 fL (80-94); MONOCYTES # (AUTO) 0.5 K/uL (0.8-1.0); MONOCYTES % (AUTO) 7.3 % (1.7-9.3); NEUTROPHILS # (AUTO) 6.1 K/uL (1.8-7.7); PLATELET COUNT (AUTO) 157 K/uL (140-450); RED BLOOD CELL COUNT(AUTO) 2.68 MIL/uL (4.20-6.10); RED CELL DISTRIBUTION WIDTH 15.8 % (11.6-13.7); WHITE BLOOD COUNT (AUTO) 7.1 K/uL (4.8-10.8)
--- NOTE | 2022-05-13 07:20 | NUR ---
ENDORSED REPORT TO AM NURSE ARISTEO RN FOR CONTINUITY OF CARE. PT IS STABLE. ALL NEEDS MET THROUGHOUT THE SHIFT.
--- NOTE | 2022-05-13 07:30 | NUR ---
RECEIVED REPORT FROM NIGHTSHIFT NURSE. PT APHASIC. HOB ELEVATED. TRACH TO VENT. FIO2 @ 28% WITH O2 SATURATION @ 100%. NIGHTSHIFT NURSE STATES SEIZURE ACTIVITY @ 0437 WITNESSED BY RT FOR 15 SECONDS. KAT VIA GRAVITY. BRYAN MIDLINE DOUBLE LUMEN WITH NS @ 60 ML/HR. GLUCERNA 1.2 @ 40 ML/HR WITH 100 ML WATER FLUSH Q4H. PT CONTRACTED. SEIZURE PRECAUTIONS IN PLACE. CONTACT PRECAUTIONS FOR ESBL URINE/+MRSA NARES. ALL NEEDS MET AT THIS TIME. ALL SAFETY MEASURES IN PLACE.
--- NOTE | 2022-05-13 07:40 | NUR ---
RECEIVED ON A StorieSCAPE R860 VENTILATOR PLUGGED INTO RED OUTLET TOLERATING WELL WITHOUT ADVERSE REACTIONS NOTED TO A PORTEX DCT #7 AIRWAY SECURED WITH A NAVYA TRACH TIE AMBU BAG NOTED AT BEDSIDE LOC AWAKE AND ALERT RESPONSIVE TO RC P VERBAL COMMANDS BY "NODDING OF HEAD" STABLE GOOD CHEST RISE DEEP TRACHEAL SUCTION FOR MODERATE SEMI THICK TI THIN WITH BLOOD TINGE SECRETIONS AIRWAY PATENT
[2022-05-13] MEDS: ALBUTEROL SULFATE/IPRATROPIU 3 ML SOL IH SCH ×3 (07:42→19:45)
[2022-05-13 08:05] LABS: ANION GAP 12.8 (8-16); CARBON DIOXIDE 24.8 mmol/L (21-32); CREATININE 0.8 mg/dL (0.6-1.3); POTASSIUM 3.6 mmol/L (3.5-5.1)
[2022-05-13] MEDS: BLOOD GLUCOSE MONITORING 1 DEV DEV FS SCH ×4 (08:29→22:01)
[2022-05-13] MEDS: MEROPENEM 1,000 MG in NACL 0.9% 50 ML IV SCH ×2 (09:37→21:00)
[2022-05-13] MEDS: VALPROIC ACID 250 MG/5 ML UDC PO SCH ×3 (09:37→22:11)
[2022-05-13] MEDS: PANTOPRAZOLE 40 MG INJ VIAL IVP SCH (09:37)
[2022-05-13] MEDS: METOPROLOL 25 MG TAB PO SCH ×2 (09:38→22:11)
[2022-05-13] MEDS: MUPIROCIN CA NASAL 2% 1GM TUBE NS SCH (09:53)
[2022-05-13] MEDS: CHLORHEXADINE GLUC 2% CLOTH TP SCH (09:53)
[2022-05-13] MEDS: levETIRAcetam 100 MG/ML ORASYR PEG SCH ×2 (10:56→22:10)
--- NOTE | 2022-05-13 11:06 | NUR ---
STABLE RESTING COMFORTABLY GOOD CHEST RISE DEEP TRACHEAL SUCTION FOR SMALL THIN YELLOW SECRETIONS AIRWAY PATENT
--- NOTE | 2022-05-13 11:30 | NUR ---
GTUBE WITH 0 ML RESIDUAL. PT TOLERATING GTUBE FEEDING. HOB ELEVATED. O2 SATURATION @ 98%. FIO2 28%. NEEDS ALL MET AT THIS TIME. CONTACT PRECAUTION. ALL SAFETY MEASURES IN PLACE.
--- NOTE | 2022-05-13 13:52 | NUR ---
STABLE GOOD CHEST RISE NO SUCTIONING AT THIS TIME AIRWAY PATENT
--- NOTE | 2022-05-13 14:34 | NUR ---
05/13/22 RD FOLLOW UP COMPLETED PLEASE REFER TO NUTRITION ASSESSMENT UNDER CARE ACTIVITY FOR ESTIMATED NUTRITIONAL NEEDS 1. CONTINUE GLUCERNA 1.2 @ 40ML/HR; FWF 100ML Q4H PT TOLERATES. -RECOMMEND PROSOURCE BID FOR NUTRITION SUPPORT 2. RD TO FOLLOW-UP IN 7 DAYS PATIENT IS LOW RISK. RAMOS LU, RD
--- NOTE | 2022-05-13 17:33 | NUR ---
STABLE GOOD CHEST RISE DEEP TRACHEAL SUCTION FOR LARGE THIN TO FROTHY YELLOW WITH BLOOD TINGE SECRETIONS AIRWAY PATENT
--- NOTE | 2022-05-13 19:30 | NUR ---
REPORT GIVEN TO NIGHTSIAFT NURSEANA FOR CONTINUITY OF CARE.
--- NOTE | 2022-05-13 19:45 | NUR ---
PT RECIEVED FROM DAY SHIFT RT. PT IS TRACHED WITH A 7 PORTEX, ON PRVC 18, 400, +5, 28%. PT IS RESTING IN BED WITH WITH HOB ELEVATED. ALARMS ARE SET AUDIBLE, AMBU BAG A5 Addendum: 05/13/22 at 2159 by Cody Rutledge RT AMBU BAG AT BED SIDE.
[2022-05-14] MEDS: LINEZOLID 600MG PREMIX 300 ML IV SCH ×2 (00:22→11:57)
[2022-05-14 00:50] VITALS: BP 126/48
[2022-05-14] MEDS: BLOOD GLUCOSE MONITORING 1 DEV DEV FS SCH ×4 (07:07→21:00)
[2022-05-14 07:16] LABS: EOSINOPHILS # (AUTO) 0.4 K/uL (0-0.4); EOSINOPHILS % (AUTO) 10.1 % (0.0-4.0); HEMATOCRIT 23.2 % (36-52); HEMOGLOBIN 7.8 g/dL (12.0-18.0); LYMPHOCYTES # (AUTO) 0.5 K/uL (2.0-11.5); MEAN CORPUSCULAR HEMOGLOBIN 29 pg (27-31); MEAN CORPUSCULAR HGB CONC 34 g/dL (33-37); MEAN CORPUSCULAR VOLUME 85.3 fL (80-94); MONOCYTES # (AUTO) 0.4 K/uL (0.8-1.0); MONOCYTES % (AUTO) 10.1 % (1.7-9.3); NEUTROPHILS # (AUTO) 2.6 K/uL (1.8-7.7); NEUTROPHILS % (AUTO) 65.8 % (42.2-75.2); PLATELET COUNT (AUTO) 161 K/uL (140-450); RED BLOOD CELL COUNT(AUTO) 2.72 MIL/uL (4.20-6.10); RED CELL DISTRIBUTION WIDTH 15.8 % (11.6-13.7); WHITE BLOOD COUNT (AUTO) 3.9 K/uL (4.8-10.8)
[2022-05-14 07:54] LABS: ANION GAP 15.6 (8-16); CARBON DIOXIDE 23.1 mmol/L (21-32); CREATININE 0.7 mg/dL (0.6-1.3); POTASSIUM 3.7 mmol/L (3.5-5.1)
[2022-05-14 08:08] VITALS: BP 137/48
[2022-05-14] MEDS: ALBUTEROL SULFATE/IPRATROPIU 3 ML SOL IH SCH ×2 (08:45→20:25)
[2022-05-14] MEDS: MEROPENEM 1,000 MG in NACL 0.9% 50 ML IV SCH ×2 (09:22→23:20)
--- NOTE | 2022-05-14 10:08 | NUR ---
INCONT. CARE PROVIDED. ALL BEDDING CHANGED. PT SUCTIONED BY RT. PT TOLERATED WELL.
[2022-05-14] MEDS: PANTOPRAZOLE 40 MG INJ VIAL IVP SCH (10:21)
[2022-05-14] MEDS: METOPROLOL 25 MG TAB PO SCH ×2 (10:21→23:21)
[2022-05-14] MEDS: levETIRAcetam 100 MG/ML ORASYR PEG SCH ×2 (10:21→23:20)
[2022-05-14] MEDS: VALPROIC ACID 250 MG/5 ML UDC PO SCH ×2 (10:22→23:21)
[2022-05-14 12:00] VITALS: BP 125/53
--- NOTE | 2022-05-14 12:03 | NUR ---
PT APPEARED SHAKING BUT WHEN SHAKEN AND ASKED IF PT WAS OK, PT STOPPED SHAKING AND NODDED HIS HEAD IN THE AFFIRMATIVE THAT HE WAS OK.
[2022-05-14 16:00] VITALS: BP 125/56
[2022-05-14] MEDS: NACL 0.9% 1,000 ML IV SCH (16:15)
[2022-05-14 20:34] VITALS: BP 125/74
[2022-05-15 00:56] VITALS: BP 133/66
[2022-05-15] MEDS: ACETAMINOPHEN 325 MG TAB PO PRN (00:56)
[2022-05-15] MEDS: LINEZOLID 600MG PREMIX 300 ML IV SCH ×2 (00:56→11:52)
[2022-05-15 04:57] VITALS: BP 130/70
--- NOTE | 2022-05-15 06:50 | NUR ---
PATIENT HAD A QUIET NIGHT, NO SEIZURE, WAS GIVEN HIS SCHEDULED MEDICATIONS, HIS FEED WAS STARTED AT 0630. VITALS WITHIN NORMAL LIMIT.wILL ENDORSE TO ONCOMING SHIFT FOR CONTINUITY OF CARE
[2022-05-15] MEDS: ALBUTEROL SULFATE/IPRATROPIU 3 ML SOL IH SCH (07:00)
[2022-05-15] MEDS ORDERED: LACT10SO86 GT (07:51)
[2022-05-15 08:00] VITALS: BP 133/60
[2022-05-15] MEDS: BLOOD GLUCOSE MONITORING 1 DEV DEV FS SCH ×2 (08:30→11:47)
[2022-05-15] MEDS: VALPROIC ACID 250 MG/5 ML UDC PO SCH (08:38)
[2022-05-15] MEDS: levETIRAcetam 100 MG/ML ORASYR PEG SCH (08:38)
[2022-05-15] MEDS: PANTOPRAZOLE 40 MG INJ VIAL IVP SCH (08:40)
[2022-05-15] MEDS: METOPROLOL 25 MG TAB PO SCH (08:42)
[2022-05-15] MEDS: MEROPENEM 1,000 MG in NACL 0.9% 50 ML IV SCH (09:23)
[2022-05-15] MEDS: NACL 0.9% 1,000 ML IV SCH (09:24)
[2022-05-15] MEDS ORDERED: LINE600I6 IV (09:40)
[2022-05-15] MEDS ORDERED: MERO1PIG IV (09:40)
--- NOTE | 2022-05-15 14:09 | NUR ---
REPORT GIVEN TO TRAVIS ROSAS WITH [facility], [facility] WILL TRANSFER PT TO [facility]. SPOKE WITH AN ROBLES AT [facility], FULL REPORT GIVEN. PT WILL BE GOING TO ROOM 130A. TRANSFER PACKET GIVEN TO [facility] ROSAS, FULL REPORT GIVEN. CALLED PT CONTACT ALY TO NOTIFY AND LEFT MESSAGE. PATIENT REMAINS STABLE, NO SIGNIFICANT CHANGES NOTED THROUGHOUT SHIFT.
== END 2022-05-15 14:15 | DRG 870 ==
LOC: MED 14:01 → MTU 17:07
PROVIDERS: ADMIT Family Medicine; ATTEND Family Medicine
PROC: 5A1955Z Respiratory Ventilation, Greater than 96 Consecutive Hours (ICD-10-PCS; principal; 2022-05-07)
PROC: 4A00X4Z Measurement of Central Nervous Electrical Activity, External Approach (ICD-10-PCS; 2022-05-09)
PROC: 30233N1 Transfusion of Nonautologous Red Blood Cells into Peripheral Vein, Percutaneous Approach (ICD-10-PCS; 2022-05-09)
DX: A41.9 Sepsis, unspecified organism (principal); G82.50 Quadriplegia, unspecified; J96.21 Acute and chronic respiratory failure with hypoxia; J15.0 Pneumonia due to Klebsiella pneumoniae; E44.0 Moderate protein-calorie malnutrition; N39.0 Urinary tract infection, site not specified; Z16.12 Extended spectrum beta lactamase (ESBL) resistance; G40.909 Epilepsy, unspecified, not intractable, without status epilepticus; K21.9 Gastro-esophageal reflux disease without esophagitis; R13.10 Dysphagia, unspecified; E87.5 Hyperkalemia; R65.20 Severe sepsis without septic shock; E78.5 Hyperlipidemia, unspecified; B96.20 Unspecified Escherichia coli [E. coli] as the cause of diseases classified elsewhere; N18.9 Chronic kidney disease, unspecified; D64.9 Anemia, unspecified; Z20.822 Contact with and (suspected) exposure to COVID-19; Z88.0 Allergy status to penicillin; Z88.8 Allergy status to other drugs, medicaments and biological substances; Z93.1 Gastrostomy status; Z93.0 Tracheostomy status; Z86.73 Personal history of transient ischemic attack (TIA), and cerebral infarction without residual deficits; Z68.23 Body mass index [BMI] 23.0-23.9, adult
CPT/HCPCS: 36415; 36430; 36600; 71045; 80048; 80053; 80305; 81001; 82150; 82550; 82803; 82948; 83036; 83605; 83690; 83735; 83880; 84100; 84436; 84439; 84443; 84479; 84484; 85018; 85025; 85610; 85730; 86886; 86900; 86901; 86920; 87040; 87070; 87081; 87086; 87205; 89220; 93005; 94002; 94003; 94640; 95816; 96365; 99291; C9113; J0696; J1956; J2020; J2060; J2185; P9016; Q0092